=== PATIENT | male | born 1945 | race Caucasian/White ===

== ENCOUNTER 2016-11-06 10:22 | Outpatient (CLI) | payer MEDICARE | END 2016-11-06 10:23 | disposition home or self-care (01) | DX: E11.9 Type 2 diabetes mellitus without complications (principal); I49.9 Cardiac arrhythmia, unspecified; E78.5 Hyperlipidemia, unspecified; I10 Essential (primary) hypertension; F32.9 Major depressive disorder, single episode, unspecified ==

== ENCOUNTER 2017-06-12 20:53 | Outpatient (CLI) | payer MEDICARE | END 2017-06-12 20:54 | disposition home or self-care (01) | LOC: LAB.WCP 20:53 | PROVIDERS: ATTEND Family Medicine | DX: R97.20 Elevated prostate specific antigen [PSA] (principal) | CPT/HCPCS: 36415; 84153 ==

== ENCOUNTER 2017-09-08 14:38 | Emergency (ER) | payer MEDICARE ==
[2017-09-08 14:48] VITALS: BP 164/82
--- NOTE | 2017-09-08 16:20 | ED Physician Documentation ---
PD HPI ABD PAIN - Stated complaint Stated Complaint: ABD PX - Chief complaint Chief Complaint: Abd Pain - History obtained from History obtained from: Patient - History of Present Illness Timing - onset: How many days ago (2) Timing - duration: Days (2) Timing - details: Gradual onset, Still present Quality: Sharp, Pain Location: LLQ Radiation: Lower back Improved by: Laying still Worsened by: Moving, Position, Palpation Associated symptoms: Constipation, Loss of appetite. No: Nausea, Vomiting, Hematemesis, Diarrhea Similar symptoms before: Diagnosis (diverticulitis) Recently seen: Not recently seen - Additional information Additional information: 72-year-old male with a history of diverticulitis has developed symptoms again similar to what he has had previously. He has a constant pain in the left lower quadrant that is worse with movement and palpation. He did have some constipation yesterday that is been relieved today and he continues to have the pain. He has not had a fever or vomiting. He recalls having 3 prior episodes of diverticulitis none of which he recalls having a CT scan for. He has had his initial episode more than 10 years ago a second episode 5-6 years after that and a third episode 3 months ago. Review of Systems Constitutional: reports: Chills. denies: Fever Eyes: denies: Decreased vision Ears: denies: Ear pain Nose: denies: Congestion Throat: denies: Sore throat Cardiac: denies: Chest pain / pressure Respiratory: denies: Dyspnea, Cough GI: reports: Abdominal Pain, Constipation. denies: Nausea, Vomiting, Diarrhea : denies: Dysuria, Frequency Skin: denies: Rash Musculoskeletal: denies: Neck pain, Back pain, Extremity pain PD PAST MEDICAL HISTORY - Present Medications Home Medications: Ambulatory Orders Medication Instructions Recorded Confirmed Carvedilol [Coreg] 0 mg PO DAILY 09/08/17 09/08/17 Ciprofloxacin HCl [Cipro] 500 mg PO BID #14 tablet 09/08/17 Doxazosin [Cardura] 0 mg PO DAILY 09/08/17 09/08/17 Lisinopril [Prinivil] 0 mg PO DAILY 09/08/17 09/08/17 Metronidazole [Flagyl] 500 mg PO BID #14 tablet 09/08/17 Simvastatin 0 mg PO DAILY 09/08/17 09/08/17 metFORMIN [Glucophage] 0 mg DAILY 09/08/17 09/08/17 - Allergies Allergies/Adverse Reactions: Allergies Allergy/AdvReac Type Severity Reaction Status Date / Time diazepam [From Valium] Allergy Unknown Verified 09/08/17 14:48 PD ED PE NORMAL - Vitals Vital signs reviewed: Yes (hypertensive ) - General General: Alert and oriented X 3, No acute distress, Well developed/nourished - HEENT HEENT: Atraumatic, PERRL - Neck Neck: Supple, no meningeal sign - Cardiac Cardiac: RRR, No murmur - Respiratory Respiratory: No respiratory distress, Clear bilaterally - Abdomen Abdomen: Soft, Other (LLQ tenderness is specific and reproducible and there is not referred tenderness) - Back Back: No CVA TTP, No spinal TTP - Derm Derm: Normal color, Warm and dry, No rash - Extremities Extremities: No deformity, No edema - Neuro Neuro: No motor deficit, No sensory deficit Eye Opening: Spontaneous Motor: Obeys Commands Verbal: Oriented GCS Score: 15 - Psych Psych: Normal mood, Normal affect Results - Vitals Vitals: Vital Signs - 24 hr 09/08/17 14:44 Temperature 36.2 C L Heart Rate 68 Respiratory 18 Rate Blood Pressure 164/82 H O2 Saturation 97 Oxygen O2 Source Room air - Labs Labs: Laboratory Tests 09/08/17 09/08/17 16:20 16:20 WBC 6.2 RBC 4.00 L Hgb 12.9 L Hct 37.6 L MCV 93.9 MCH 32.3 H MCHC 34.4 RDW 13.8 Plt Count 235 MPV 7.7 Neut # 4.1 Lymph # 1.4 L Ware # 0.5 Eos # 0.1 Baso # 0.0 Absolute Nucleated RBC 0.00 Nucleated RBC % 0.0 Sodium 138 Potassium 3.9 Chloride 102 Carbon Dioxide 26 Anion Gap 10.0 BUN 17 Creatinine 1.0 Estimated GFR (MDRD) 73 L Glucose 113 H Calcium 9.2 Total Bilirubin 0.7 AST 20 ALT 19 Alkaline Phosphatase 66 Total Protein 8.1 Albumin 4.1 Globulin 4.0 Albumin/Globulin Ratio 1.0 Lipase 34 - Rads (name of study) CT abd/pel with Radiology: Prelim report reviewed (Impression: 1. Mild left lower quadrant diverticulitis.), EMP read indepedently, See rad report PD MEDICAL DECISION MAKING - ED course Complexity details: reviewed results, re-evaluated patient, considered differential, d/w patient ED course: 72-year-old male with acute left lower quadrant abdominal pain has diverticulitis on CT examination. He has a normal white blood cell count he is afebrile and he does not appear significantly ill. He is given oral Cipro and Flagyl this evening he will not be able to fill his scripts till morning. Departure - Departure Disposition: 01 Home, Self Care Clinical Impression: Diverticulitis of gastrointestinal tract Instructions: ED Diverticulitis Follow-Up: Kingsley Gagnon MD [Primary Care Provider] - Prescriptions: Ciprofloxacin HCl [Cipro] 500 mg PO BID #14 tablet Metronidazole [Flagyl] 500 mg PO BID #14 tablet
[2017-09-08] MEDS ORDERED: KETOROLAC 60 MG/2 ML VIAL IVP STA (16:25)
[2017-09-08] MEDS ORDERED: IOPAMIDOL-300 100 ML VIAL ONE (16:38)
[2017-09-08 16:40] LABS: BASOPHILS % (AUTO) 0.3 %; EOSINOPHILS # (AUTO) 0.1 10^3/uL (0.0-0.7); EOSINOPHILS % (AUTO) 1.2 %; HCT - HEMATOCRIT 37.6 % (42.0-52.0); HGB - HEMOGLOBIN 12.9 g/dL (14.0-18.0); LYMPHOCYTES # (AUTO) 1.4 10^3/uL (1.5-3.5); LYMPHOCYTES % (AUTO) 23.2 %; MEAN CORPUSCULAR HEMOGLOBIN 32.3 pg (27.0-31.0); MEAN CORPUSCULAR HGB CONC 34.4 g/dL (32.0-36.0); MEAN CORPUSCULAR VOLUME 93.9 fL (80.0-94.0); MEAN PLATELET VOLUME 7.7 fL (7.4-11.4); MONOCYTES # (AUTO) 0.5 10^3/uL (0.0-1.0); MONOCYTES % (AUTO) 8.6 %; NEUTROPHILS # (AUTO) 4.1 10^3/uL (1.5-6.6); NEUTROPHILS % (AUTO) 66.7 %; RED CELL DISTRIBUTION WIDTH 13.8 % (12.0-15.0); UNCORRECTED WHITE BLOOD COUNT 6.2 x10^3/uL; WHITE BLOOD COUNT 6.2 x10^3/uL (4.8-10.8)
[2017-09-08] MEDS ORDERED: KETOROLAC 30 MG/ML VIAL ONE (16:50)
[2017-09-08 16:53] LABS: BILIRUBIN,TOTAL 0.7 mg/dL (0.2-1.0); CALCIUM 9.2 mg/dL (8.5-10.3); POTASSIUM 3.9 mmol/L (3.5-5.0); TOTAL PROTEIN 8.1 g/dL (6.7-8.2)
[2017-09-08] MEDS ORDERED: IOPAMIDOL-300 100 ML VIAL IVP ONE (17:39)
--- NOTE | 2017-09-08 17:56 | CT Preliminary Report ---
Exam: CT ABDOMEN/PELVIS W/ IMPRESSION: 1. Mild left lower quadrant diverticulitis. [facility] SITE ID: [id number]
--- NOTE | 2017-09-08 17:58 | CT Report ---
EXAM: CT ABDOMEN AND PELVIS EXAM DATE: 09/08/2017 05:39 PM. CLINICAL HISTORY: LLQ pain . COMPARISONS: 09/15/2008 CT. TECHNIQUE: Routine helical CT imaging was performed through the abdomen and pelvis. IV contrast: 100M L OF ISOVUE 300. Enteric contrast: No. Reconstructions: Coronal and sagittal. In accordance with CT protocol optimization, one or more of the following dose reduction techniques w ere utilized for this exam: automated exposure control, adjustment of mA and/or KV based on patient s ize, or use of iterative reconstructive technique. FINDINGS: Lung Bases: Unremarkable. Liver: Normal. No masses. Gallbladder/Bile Ducts: Unremarkable. Spleen: Stable 2.1 cm partially calcified post traumatic or post inflammatory splenic cyst. Pancreas: Normal. Adrenal Glands: Normal. Kidneys: Normal. No masses or hydronephrosis. Peritoneal Cavity/Bowel: There is no evidence of small bowel obstruction. No free air or fluid collec tions. Extensive large bowel diverticulosis with a small focus of pericolonic inflammatory stranding in the left lower quadrant. No associated free air or fluid collections. The appendix is well visuali zed and normal. Pelvic Organs: Normal. The bladder and visualized pelvic organs are within normal limits. Vasculature: Atherosclerotic aorta. No aneurysm. Bones: No significant abnormality. Other: None. IMPRESSION: 1. Mild left lower quadrant diverticulitis. [facility] Referring Provider Line: [phone] SITE ID: [id number]
[2017-09-08] MEDS ORDERED: metroNIDAZOLE 250 MG TABLET PO STA (18:15)
[2017-09-08] MEDS ORDERED: CIPROFLOXACIN 250 MG TABLET PO STA (18:15)
[2017-09-08] MEDS ORDERED: metroNIDAZOLE 250 MG TABLET PO ONE (18:25)
[2017-09-08] MEDS ORDERED: CIPROFLOXACIN 250 MG TABLET PO ONE (18:26)
== END 2017-09-08 18:29 | disposition home or self-care (01) ==
LOC: ED 14:38
DX: K57.32 Diverticulitis of large intestine without perforation or abscess without bleeding (principal)
CPT/HCPCS: 74177; 80053; 83690; 85025; 87040; 96374; 99283; A9270; Q9967

== ENCOUNTER 2017-11-21 09:54 | Outpatient (CLI) | payer MEDICARE ==
[2017-11-21 17:47] LABS: BASOPHILS % (AUTO) 0.4 %; EOSINOPHILS # (AUTO) 0.1 10^3/uL (0.0-0.7); EOSINOPHILS % (AUTO) 1.8 %; HGB - HEMOGLOBIN 12.1 g/dL (14.0-18.0); LYMPHOCYTES # (AUTO) 1.2 10^3/uL (1.5-3.5); LYMPHOCYTES % (AUTO) 25.3 %; MEAN CORPUSCULAR HEMOGLOBIN 32.5 pg (27.0-31.0); MEAN CORPUSCULAR HGB CONC 35.1 g/dL (32.0-36.0); MEAN CORPUSCULAR VOLUME 92.7 fL (80.0-94.0); MEAN PLATELET VOLUME 8.4 fL (7.4-11.4); MONOCYTES # (AUTO) 0.4 10^3/uL (0.0-1.0); MONOCYTES % (AUTO) 8.5 %; NEUTROPHILS # (AUTO) 2.9 10^3/uL (1.5-6.6); PLT - PLATELET COUNT 217 10^3/uL (130-450); RED BLOOD COUNT 3.71 10^6/uL (4.70-6.10); RED CELL DISTRIBUTION WIDTH 13.4 % (12.0-15.0); WHITE BLOOD COUNT 4.5 x10^3/uL (4.8-10.8)
[2017-11-21 18:09] LABS: ALBUMIN 3.8 g/dL (3.2-5.5); BILIRUBIN,TOTAL 0.4 mg/dL (0.2-1.0); CALCIUM 8.3 mg/dL (8.5-10.3); CREATININE 1.3 mg/dL (0.6-1.2); TOTAL PROTEIN 7.5 g/dL (6.7-8.2)
[2017-11-21 18:14] LABS: HB2 TOTAL 13.4 g/dL; HEMOGLOBIN A1C 0.61 g/dL; HEMOGLOBIN A1C % 6.3 % (4.6-6.2)
== END 2017-11-21 09:55 | disposition home or self-care (01) ==
LOC: LAB.F 09:54
PROVIDERS: ATTEND Family Medicine
DX: E78.5 Hyperlipidemia, unspecified (principal); E11.9 Type 2 diabetes mellitus without complications; I10 Essential (primary) hypertension
CPT/HCPCS: 36415; 80053; 82043; 83036; 84153; 85025

== ENCOUNTER 2018-02-04 08:00 | Outpatient (CLI) | payer MEDICARE | END 2018-02-04 08:01 | LOC: LAB.R 08:00 | PROVIDERS: ATTEND Internal Medicine | DX: J02.9 Acute pharyngitis, unspecified (principal) | CPT/HCPCS: 87070 ==

== ENCOUNTER 2018-06-04 09:45 | Outpatient (CLI) | payer MEDICARE ==
[2018-06-04 17:38] LABS: HB2 TOTAL 11.9 g/dL; HEMOGLOBIN A1C 0.54 g/dL; HEMOGLOBIN A1C % 6.3 % (4.6-6.2)
[2018-06-04 17:42] LABS: ALBUMIN 3.5 g/dL (3.2-5.5); ALBUMIN/GLOBULIN RATIO 0.9 (1.0-2.2); BILIRUBIN,TOTAL 1.1 mg/dL (0.2-1.0); CALCIUM 8.4 mg/dL (8.5-10.3); CREATININE 1.6 mg/dL (0.6-1.2); TOTAL PROTEIN 7.2 g/dL (6.7-8.2)
== END 2018-06-04 09:46 | disposition home or self-care (01) ==
LOC: LAB.F 09:45
PROVIDERS: ATTEND Family Medicine
DX: R97.20 Elevated prostate specific antigen [PSA] (principal)
CPT/HCPCS: 36415; 80053; 83036; 84153

== ENCOUNTER 2019-11-11 10:16 | Outpatient (CLI) | payer MEDICARE ==
[2019-11-11 17:20] LABS: BASOPHILS % (AUTO) 0.6 %; EOSINOPHILS # (AUTO) 0.1 10^3/uL (0.0-0.7); EOSINOPHILS % (AUTO) 1.8 %; HGB - HEMOGLOBIN 11.8 g/dL (14.0-18.0); LYMPHOCYTES # (AUTO) 0.9 10^3/uL (1.5-3.5); LYMPHOCYTES % (AUTO) 24.9 %; MEAN CORPUSCULAR HEMOGLOBIN 33.9 pg (27.0-31.0); MEAN CORPUSCULAR HGB CONC 33.6 g/dL (32.0-36.0); MEAN CORPUSCULAR VOLUME 100.9 fL (80.0-94.0); MEAN PLATELET VOLUME 9.8 fL (7.4-11.4); MONOCYTES # (AUTO) 0.3 10^3/uL (0.0-1.0); MONOCYTES % (AUTO) 8.2 %; NEUTROPHILS # (AUTO) 2.2 10^3/uL (1.5-6.6); NEUTROPHILS % (AUTO) 64.2 %; PLT - PLATELET COUNT 240 10^3/uL (130-450); RED BLOOD COUNT 3.48 10^6/uL (4.70-6.10); RED CELL DISTRIBUTION WIDTH 13.4 % (12.0-15.0); WHITE BLOOD COUNT 3.4 x10^3/uL (4.8-10.8)
[2019-11-11 17:49] LABS: ALBUMIN 4.1 g/dL (3.2-5.5); ALBUMIN/GLOBULIN RATIO 1.2 (1.0-2.2); ALKALINE PHOSPHATASE 57 IU/L (42-121); ALT ALANINE AMINOTRANSFERASE 17 IU/L (10-60); AST ASPARTATE AMINOTRANSFERASE 19 IU/L (10-42); BILIRUBIN,TOTAL 0.8 mg/dL (0.2-1.0); BUN - BLOOD UREA NITROGEN 19 mg/dL (6-20); CALCIUM 8.6 mg/dL (8.5-10.3); CARBON DIOXIDE - CO2 25 mmol/L (21-32); CHLORIDE 105 mmol/L (101-111); CHOL/HDL RATIO 5.8 (<5.0); CHOLESTEROL 121 mg/dL; CREATININE 1.2 mg/dL (0.6-1.2); GFR - MDRD 59 (>89); GLUCOSE 129 mg/dL (70-100); HDL CHOLESTEROL 21 mg/dL; LDL CHOLESTEROL,CALCULATED 64 mg/dL; SODIUM 137 mmol/L (135-145); TOTAL PROTEIN 7.5 g/dL (6.7-8.2); VLDL CHOLESTEROL 36 mg/dL
[2019-11-11 18:03] LABS: HB2 TOTAL 11.9 g/dL; HEMOGLOBIN A1C 0.54 g/dL; HEMOGLOBIN A1C % 6.3 % (4.6-6.2)
== END 2019-11-11 10:17 | disposition home or self-care (01) ==
LOC: LAB.S 10:16
PROVIDERS: ATTEND Physician Assistant Medical
DX: E11.9 Type 2 diabetes mellitus without complications (principal); E78.5 Hyperlipidemia, unspecified; I10 Essential (primary) hypertension; F32.9 Major depressive disorder, single episode, unspecified; Z79.899 Other long term (current) drug therapy
CPT/HCPCS: 36415; 80053; 80061; 83036; 83721; 84443; 85025

== ENCOUNTER 2020-11-19 10:46 | Outpatient (CLI) | payer MEDICARE ==
[2020-11-19 15:53] LABS: BASOPHILS % (AUTO) 0.5 %; EOSINOPHILS # (AUTO) 0.1 10^3/uL (0.0-0.7); EOSINOPHILS % (AUTO) 2.1 %; HGB - HEMOGLOBIN 12.2 g/dL (14.0-18.0); LYMPHOCYTES # (AUTO) 0.8 10^3/uL (1.5-3.5); LYMPHOCYTES % (AUTO) 21.4 %; MEAN CORPUSCULAR HEMOGLOBIN 34.1 pg (27.0-31.0); MEAN CORPUSCULAR VOLUME 100.3 fL (80.0-94.0); MEAN PLATELET VOLUME 9.9 fL (7.4-11.4); MONOCYTES # (AUTO) 0.4 10^3/uL (0.0-1.0); NEUTROPHILS # (AUTO) 2.6 10^3/uL (1.5-6.6); PLT - PLATELET COUNT 251 10^3/uL (130-450); RED BLOOD COUNT 3.58 10^6/uL (4.70-6.10); RED CELL DISTRIBUTION WIDTH 13.5 % (12.0-15.0); WHITE BLOOD COUNT 3.9 x10^3/uL (4.8-10.8)
[2020-11-19 16:18] LABS: ALBUMIN 3.9 g/dL (3.2-5.5); ALBUMIN/GLOBULIN RATIO 1.1 (1.0-2.2); ALKALINE PHOSPHATASE 65 IU/L (42-121); ALT ALANINE AMINOTRANSFERASE 17 IU/L (10-60); AST ASPARTATE AMINOTRANSFERASE 19 IU/L (10-42); BILIRUBIN,TOTAL 0.8 mg/dL (0.2-1.0); BUN - BLOOD UREA NITROGEN 25 mg/dL (6-20); CALCIUM 8.9 mg/dL (8.5-10.3); CARBON DIOXIDE - CO2 24 mmol/L (21-32); CHLORIDE 102 mmol/L (101-111); CHOL/HDL RATIO 5.5 (<5.0); CHOLESTEROL 121 mg/dL; CREATININE 1.1 mg/dL (0.6-1.2); GLUCOSE 116 mg/dL (70-100); HDL CHOLESTEROL 22 mg/dL; LDL CHOLESTEROL,CALCULATED 65 mg/dL; TOTAL PROTEIN 7.6 g/dL (6.7-8.2); VLDL CHOLESTEROL 34 mg/dL
[2020-11-19 16:22] LABS: MICROALBUM/CREATININE RATIO,UR 4.2 ug/mg (<30.0); MICROALBUMIN,URINE 0.8 mg/dL (0-300.0)
== END 2020-11-19 10:47 | disposition home or self-care (01) ==
LOC: LAB.S 10:46
PROVIDERS: ATTEND Family Medicine
DX: E11.22 Type 2 diabetes mellitus with diabetic chronic kidney disease (principal); I12.9 Hypertensive chronic kidney disease with stage 1 through stage 4 chronic kidney disease, or unspecified chronic kidney disease; N18.30 Chronic kidney disease, stage 3 unspecified; E78.5 Hyperlipidemia, unspecified; R97.20 Elevated prostate specific antigen [PSA]; Z79.899 Other long term (current) drug therapy
CPT/HCPCS: 36415; 80053; 80061; 82043; 82570; 83036; 83721; 84153; 84443; 85025

== ENCOUNTER 2021-06-27 11:10 | Outpatient (CLI) | payer MEDICARE ==
[2021-06-27 14:18] LABS: ESTIMATED AVERAGE GLUCOSE 128 mg/dL (70-100); HEMOGLOBIN A1c% 6.1 % (4.27-6.07)
[2021-06-27 14:27] LABS: CREATININE,URINE 164.8 mg/dL; MICROALBUM/CREATININE RATIO,UR 9.7 ug/mg (<30.0); MICROALBUMIN,URINE 1.6 mg/dL (0-300.0)
[2021-06-27 14:29] LABS: CALCIUM 8.7 mg/dL (8.5-10.3); CREATININE 1.1 mg/dL (0.6-1.2); POTASSIUM 4.3 mmol/L (3.5-5.0)
== END 2021-06-27 11:11 | disposition home or self-care (01) ==
LOC: LAB.S 11:10
PROVIDERS: ATTEND Family Medicine
DX: E11.22 Type 2 diabetes mellitus with diabetic chronic kidney disease (principal); N18.30 Chronic kidney disease, stage 3 unspecified
CPT/HCPCS: 36415; 80048; 82043; 82570; 83036

== ENCOUNTER 2023-10-29 11:10 | Outpatient (CLI) | payer MEDICARE ==
--- NOTE | 2023-10-29 20:47 | XRAY Report ---
PROCEDURE: Chest 3V INDICATIONS: ACUTE BRONCHITIS TECHNIQUE: 2 views of the chest were acquired. COMPARISON: CT abdomen and pelvis dated September 06, 2017. FINDINGS: Surgical changes and devices: None. Lungs and pleura: No pleural effusions or pneumothorax. Right lower lobe linear atelectasis/scar. Bi lateral perihilar bronchial wall thickening. Lungs are otherwise clear. Mediastinum: Mediastinal contours appear normal. Heart size is normal. Aortic arch is calcified, in dicating atherosclerosis. Bones and chest wall: No suspicious bony lesions. Mild multilevel degenerative changes of the spine. Overlying soft tissues appear unremarkable. Elevation of the right hemidiaphragm, stable compared t o CT dated September 08, 2017. Peripherally calcified lesion in the left subdiaphragmatic region alessandra tible with a peripherally calcified lesion, likely a hemangioma, seen on prior CT. IMPRESSION: 1.Bilateral perihilar bronchial wall thickening suggestive of reactive airways disease and/or bronchi tis. No focal pulmonary consolidation. 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 Reviewed by: Viki Patterson MD on 10/29/2023 8:46 PM PST Approved by: Viki Patterson MD on 10/29/2023 8:46 PM PST Station ID: [id number]
== END 2023-10-29 11:11 | disposition home or self-care (01) ==
LOC: DI.S 11:10
PROVIDERS: ATTEND Nurse Practitioner Family
DX: J20.9 Acute bronchitis, unspecified (principal); J98.6 Disorders of diaphragm

== ENCOUNTER 2023-12-05 09:04 | Outpatient (CLI) | payer MEDICARE ==
[2023-12-05 14:26] LABS: BASOPHILS % (AUTO) 0.2 %; EOSINOPHILS # (AUTO) 0.1 10^3/uL (0.0-0.7); EOSINOPHILS % (AUTO) 2.2 %; HCT - HEMATOCRIT 35.4 % (42.0-52.0); HGB - HEMOGLOBIN 11.5 g/dL (14.0-18.0); LYMPHOCYTES # (AUTO) 0.8 10^3/uL (1.5-3.5); LYMPHOCYTES % (AUTO) 19.9 %; MEAN CORPUSCULAR HEMOGLOBIN 30.5 pg (27.0-31.0); MEAN CORPUSCULAR HGB CONC 32.5 g/dL (32.0-36.0); MEAN CORPUSCULAR VOLUME 93.9 fL (80.0-94.0); MEAN PLATELET VOLUME 11.2 fL (7.4-11.4); MONOCYTES # (AUTO) 0.4 10^3/uL (0.0-1.0); MONOCYTES % (AUTO) 9.5 %; NEUTROPHILS # (AUTO) 2.8 10^3/uL (1.5-6.6); PLT - PLATELET COUNT 200 10^3/uL (130-450); RED BLOOD COUNT 3.77 10^6/uL (4.70-6.10); RED CELL DISTRIBUTION WIDTH 12.7 % (12.0-15.0); WHITE BLOOD COUNT 4.1 x10^3/uL (4.8-10.8)
[2023-12-05 16:00] LABS: ALBUMIN 3.8 g/dL (3.2-5.5); ALBUMIN/GLOBULIN RATIO 1.1 (1.0-2.2); ALKALINE PHOSPHATASE 89 IU/L (42-121); ALT ALANINE AMINOTRANSFERASE 13 IU/L (10-60); AST ASPARTATE AMINOTRANSFERASE 16 IU/L (10-42); BILIRUBIN,TOTAL 0.6 mg/dL (0.2-1.0); BUN - BLOOD UREA NITROGEN 18 mg/dL (6-20); CALCIUM 9.1 mg/dL (8.5-10.3); CARBON DIOXIDE - CO2 30 mmol/L (21-32); CHLORIDE 104 mmol/L (101-111); CHOL/HDL RATIO 4.6 (<5.0); CHOLESTEROL 106 mg/dL; GFR - MDRD 72 (>89); GLUCOSE 134 mg/dL (74-104); HDL CHOLESTEROL 23 mg/dL; LDL CHOLESTEROL,CALCULATED 55 mg/dL; LDL/HDL RATIO 2.4 (<3.6); MAGNESIUM 1.3 mg/dL (1.7-2.3); POTASSIUM 4.1 mmol/L (3.5-4.5); SODIUM 138 mmol/L (135-145); TOTAL PROTEIN 7.4 g/dL (6.4-8.9); TRIGLYCERIDES 140 mg/dL (48-352); VLDL CHOLESTEROL 28 mg/dL
[2023-12-05 16:09] LABS: THYROID STIMULATING HORMONE 2.86 uIU/mL (0.34-5.60)
== END 2023-12-05 09:05 | disposition home or self-care (01) ==
LOC: LAB.S 09:04
PROVIDERS: ATTEND Internal Medicine Cardiovascular Disease
DX: I10 Essential (primary) hypertension (principal); I48.11 Longstanding persistent atrial fibrillation; E78.5 Hyperlipidemia, unspecified
CPT/HCPCS: 36415; 80053; 80061; 83721; 83735; 84443; 85025